=== PATIENT | male | born 1955 | race Caucasian/White ===

== ENCOUNTER 2022-07-18 14:06 | Emergency (ER) | payer OTHER ==
[2022-07-18 15:13] LABS: ALT (SGPT) 22 U/L (8-55); AST (SGOT) 21 U/L (5-34); Albumin 4.3 g/dL (3.4-4.8); Alkaline Phosphatase 45 U/L (40-110); Anion Gap 16 mmol/L (10-20); BUN (Urea Nitrogen) 20 mg/dL (8.4-25.7); Bilirubin, Total 0.5 mg/dL (0.2-1.2); Calc. Creatinine Clearance 0 mL/min (70-130); Calcium 8.9 mg/dL (7.8-10.44); Carbon Dioxide 20 mmol/L (23-31); Chloride 105 mmol/L (98-107); Estimated GFR 95; Globulin 2.4 g/dL (2.4-3.5); Glucose 105 mg/dL (80-115); Protein, Total 6.7 g/dL (5.8-8.1); Sodium 137 mmol/L (136-145)
[2022-07-18 15:20] LABS: PTT 22.8 sec (22.0-33.0); Prothrombin Time 10.9 sec (9.5-12.1)
[2022-07-18 15:40] LABS: #Eosinphils 0.1 10x3/uL (0.0-0.5); #Monocytes 0.8 10x3/uL (0.0-1.1); #Neutrophils 4.2 10x3/uL (1.5-8.4); %Basophils 0.6 % (0.0-2.0); %Lymphocytes 25.8 % (18.0-47.0); %Monocytes 11.2 % (0.0-10.0); %Neutrophils 60.1 % (40.0-75.0); Hemoglobin 13.8 g/dL (13.5-17.5); Mean Corpuscular HGB CONC 33.9 g/dL (32.0-36.0); Mean Corpuscular Hemoglobin 31.3 pg (27.0-33.0); Mean Corpuscular Volume 92.3 fl (81.2-95.1); Mean Platelet Volume 10.6 fl (7.4-10.4); Platelet Count 220 10x3/uL (150-450); RBC Distribution Width 12.4 % (11.5-14.5); Red Blood Cell (RBC) Count 4.41 10x6/uL (4.32-5.72); White Blood Cell (WBC) Count 6.9 10x3/uL (3.5-10.5)
[2022-07-18] MEDS ORDERED: Ondansetron PF 4 MG/2 ML Vial ONE (15:59)
[2022-07-18] MEDS ORDERED: Morphine 4 MG/ML VIAL ONE (16:00)
[2022-07-18 17:01] LABS: SARS-CoV-2 NAA Rapid Test Not Detected (NotDetected)
== END 2022-07-18 16:57 | disposition short-term general hospital (02) ==
LOC: CSHERS 14:06
DX: I62.9 Nontraumatic intracranial hemorrhage, unspecified (principal); E78.5 Hyperlipidemia, unspecified; Z20.822 Contact with and (suspected) exposure to COVID-19; Z79.899 Other long term (current) drug therapy
CPT/HCPCS: 70450; 80053; 82962; 84484; 85025; 85610; 85730; 93005; 96374; 96375; 99285; U0002; 36415; 36416; J2270; J2405